=== PATIENT | female | born 1955 | race Caucasian/White ===

== ENCOUNTER → 2021-02-01 08:29 | Outpatient (REF) | payer OTHER, SELFPAY | LOC: ANHLAB 08:29 | PROVIDERS: PCP Internal Medicine; Visit Provider Nurse Practitioner | DX: C44.91 Basal cell carcinoma of skin, unspecified (principal) | CPT/HCPCS: 88305 ==

== ENCOUNTER → 2021-02-14 14:29 | Outpatient (CLI) | payer OTHER, SELFPAY ==
--- NOTE | ~2021-02-14 | MR_ITS ---
EXAMINATION: MR lumbar spine wo con DATE: 02/14/2021 15:14 INDICATION: Low back pain with radiculopathy. TECHNIQUE: Magnetic resonance imaging (MRI) of the lumbar spine was performed without intravenous con trast. Sequences included sagittal T2-weighted FSE, sagittal T2-weighted FS FSE, sagittal T1-weighted FSE, and axial T2-weighted FSE. COMPARISON: None FINDINGS: There is 9 degrees levocurvature of lumbar spine. There is 3 mm anterolisthesis of L4 on L5 . There is mild chronic anterior wedging of T12 vertebral body. Intervertebral disc heights are laron l. The distal spinal cord signal intensity is normal. The conus medullaris is at T12. The following d isc levels are specifically discussed: L1-L2: The disc is mildly bulging. There is severe bilateral facet joint osteoarthritis. There is mil d bilateral neural foraminal stenosis. There is mild central canal stenosis. L2-L3: The disc is bulging. There is severe bilateral facet joint osteoarthritis. There is mild bilat eral neural foraminal stenosis. There is mild central canal stenosis. L3-L4: The disc is bulging. There is severe bilateral facet joint osteoarthritis. There is mild bilat eral neural foraminal stenosis. There is mild central canal stenosis. L4-L5: The disc does not extend beyond the endplate margin. There is severe bilateral facet joint ost eoarthritis. There is mild right neural foraminal stenosis. There is no central canal stenosis. L5-S1: There is a central protrusion. There is severe bilateral facet joint osteoarthritis. There is mild bilateral neural foraminal stenosis. There is mild central canal stenosis. IMPRESSION: 1. Mild lumbar spondylosis. Reviewed, dictated and finalized at location A. IMPRESSION: 1. Mild lumbar spondylosis.
== END ==
PROVIDERS: PCP Nurse Practitioner Family; Visit Provider Nurse Practitioner Family
DX: M54.16 Radiculopathy, lumbar region (principal); M77.8 Other enthesopathies, not elsewhere classified; M47.816 Spondylosis without myelopathy or radiculopathy, lumbar region
CPT/HCPCS: 72148

== ENCOUNTER → 2021-04-25 07:26 | Outpatient (REF) | payer OTHER, SELFPAY | LOC: ANHLAB 07:26 | PROVIDERS: PCP Nurse Practitioner Family; Visit Provider Nurse Practitioner | DX: C44.311 Basal cell carcinoma of skin of nose (principal) | CPT/HCPCS: 88305; 88331 ==

== ENCOUNTER 2021-05-03 08:30 | Outpatient (RCR) | payer OTHER, SELFPAY ==
--- NOTE | 2021-04-05 12:20 | PTOPEVAL ---
Thank you for referring Pamella Reeves to [facility].? The patient is scheduled to be seen for therapy? 2x/week for 5 weeks. Please review, sign, date and return this plan of care ZULEMA. I agree with and certify that the following plan of care is medically necessary. Referring Physician Date Attending Provider: Kirill Tarango MD Diagnosis lumbar radiculopathy with right radiating symptoms. Onset 07/29 Additional Evaluation Detail foot surgery 07/28 for tarsal tunnel release and plantar fascia release she was in a boot, but did not have therapy. MRI: There is 9 degrees levocurvature of lumbar spine. There is 3 mm anterolisthesis of L4 on L5. There is mild chronic anterior wedging of T12 vertebral body. Subjective Information Reports radiating pain of Query Text:As Reported By Patient/ right post/ant leg rejohnn. She Family does gardening and crafts, but no regular exercise program. She has difficulty with sleeping with increased pain with turning. Reports increased pain initially in the morning. She is limited with distance walking due to right LE pain. 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 She can walk or stand for 10 minutes. Previous Treatments Previous Treatments For This Problem chiropractor x 2 months 3x/wk Pain Assessment Right Leg(s) Reported Pain Level 6 Pain Description Radiating,Sharp Pain Frequency Chronic,Continuous Lowest Pain Intensity 6 Greatest Pain Intensity 9 Pain Aggravating Factors Exercise/Activity,Walking, Weight Bearing/Standing Cervical and Lumbar ROM Lumbar ROM Lumbar Flexion Active FloorHands to: Lateral Flexion distal thigh:Active Hands to: Lumbar Comments 100% flex/ext with pain with flex discomfort with lateral flex Lower Extremity Muscle Strength Testing Hip Strength Left Hip Flexion Strength 4+ Good + Hip Extension Strength 4 Good Hip Abduction Strength 3 Fair Right Hip Flexion Strength 4- Good - Hip Extension Str
--- NOTE | 2021-05-03 15:10 | PCPTNOTE ---
Patient called & cancelled scheduled appointment next 2 therapy visit due to going to receive injections per MD request.
--- NOTE | 2021-05-23 10:17 | PCPTNOTE ---
Admitting Provider: Attending Provider: Kirill Tarango MD Patient:Pamella Reeves Date of :1955 Discharge Therapy Summary Patient has not returned for any further treatments since 05/03/2021, therefore she will be discharged at this time. she called and requested her therapy visits be discontinued due to following up with her doctor for injections. Patient?s initial visit was on 04/05/2021 10:00 and she had a total of 8 visits. The goals have been not met at this time. Thank you for referring this patient to [facility]. Please review, sign, date and return this discharge summary ZULEMA. I have been updated about the patient's current status and I agree with discharge from the above service at this time. Referring Physician Date
== END 2021-05-23 16:23 | disposition home or self-care (01) ==
LOC: ANHPT 08:30
PROVIDERS: PCP Nurse Practitioner Family; Visit Provider Orthopaedic Surgery
DX: M54.16 Radiculopathy, lumbar region (principal)
CPT/HCPCS: 97014; 97110; 97140; 97162; G0283

== ENCOUNTER → 2021-10-25 11:29 | Outpatient (CLI) | payer OTHER, SELFPAY ==
--- NOTE | ~2021-10-25 | MM_ITS ---
EXAMINATION: MM screening jamir BI w conor HISTORY: Screening mammogram TECHNIQUE: Craniocaudal and mediolateral oblique 3-D tomosynthesis images were obtained and synthetic 2-D images were generated. CAD analysis was submitted and interpreted. COMPARISON: 07/19/2019, 03/21/2018, 12/13/2015 bilateral screening mammogram examinations BREAST PARENCHYMAL COMPOSITION: There are scattered areas of fibroglandular density. FINDINGS: There is no evidence of suspicious mass, calcification, or architectural distortion to sugg est malignancy in either breast. There has been no suspicious interval change. IMPRESSION: 1. No mammographic evidence of malignancy. 2. Recommend routine screening mammography in one year. BI-RADS Category 1: Negative Reviewed, dictated and finalized at location A.
--- NOTE | ~2021-10-25 | DEXA_ITS ---
Bone Density Report Name: MIGUEL ÁNGEL TIPTON Age: 66 Sex: Female Ethnicity: White Date of : 1955 Indication: postmenopausal; screening for osteoporosis; height loss; hysterectomy; Referring Provider: BRANDONNATE Maradiaga Study: Bone densitometry was performed. Exam Date: October 25, 2021 Accession number: [id number] Bone Density: Region BMD T-score Z-score Classification AP Spine (L1-L4) 1.144 0.9 2.9 Normal Femoral Neck (Left) 0.877 0.3 2.0 Normal Total Hip (Left) 1.048 0.9 2.3 Normal Femoral Neck (Right) 0.889 0.4 2.1 Normal Total Hip (Right) 1.037 0.8 2.2 Normal Total Hip Mean 1.043 0.9 2.3 Normal World Health Organization criteria for BMD impression classify patients as: Normal (T-score at or above -1.0), Osteopenia (T-score between -1.0 and -2.5), or Osteoporosis (T-score at or below -2.5). 10-year Fracture Risk: FRAX not reported because: All T-scores for Spine Total, Hip Total, Femoral Neck at or above -1.0 Previous Exams: Region Exam Age BMD T-score BMD Change BMD Change Date g/cm2 vs Baseline vs Previous AP Spine(L1-L4) 10/25/2021 66 1.144 0.9 -0.031* -0.031* 06/06/2006 51 1.175 1.2 Total Hip(Left) 10/25/2021 66 1.048 0.9 0.022 0.022 06/06/2006 51 1.025 0.7 Total Hip(Right) 10/25/2021 66 1.037 0.8 0.027 0.027 06/06/2006 51 1.010 0.6 *Denotes significance at 95% confidence level, LSC for AP Spine = 0.022 g/cm2, LSC for Total Hip = 0.027 g/cm2 Clinical Information Provided by Patient: Has used the following medications: Vitamin D Has the following medical conditions: Hysterectomy Patient maximum height was 63 Menopause Age: 44 No regular weight bearing exercise Drinks caffeinated beverages Onset of menses at age 11 Number of children 2 Impression: The patient has normal bone mass. The BMD for the AP Spine(L1-L4) decreased, changing by -0.031 since the last DXA exam. Discussion: BONE DENSITY IS ABOVE THE MINIMUM DESIRABLE LEVEL AT ALL SKELETAL SITES TESTED. This patient?s bone mineral density is above the minimum desirable level (T-score -1.0 or better) at all sites measured. The patient should follow a healthful lifestyle (good nutrition with adequate calcium and vitamin D, and appropriate weight-bearing exercise). Follow-Up: Consider repeating this study in 3 to 4 years to reassess this patient's status, or sooner if there is some new clinical i
== END ==
PROVIDERS: PCP Nurse Practitioner Family; Visit Provider Nurse Practitioner Family
DX: Z12.31 Encounter for screening mammogram for malignant neoplasm of breast (principal); Z78.0 Asymptomatic menopausal state
CPT/HCPCS: 77063; 77067; 77080

== ENCOUNTER → 2022-06-14 16:01 | Outpatient (CLI) | payer OTHER, SELFPAY ==
--- NOTE | ~2022-06-14 | MR_ITS ---
EXAMINATION: MR lumbar spine wo con DATE: 06/14/2022 16:54 INDICATION: Stenosis of lateral recess of lumbar spine. Right lower limb pain. TECHNIQUE: Magnetic resonance imaging (MRI) of the lumbar spine was performed without intravenous con trast. Sequences included sagittal T2-weighted FSE, sagittal T2-weighted FS FSE, sagittal T1-weighted FSE, and axial T2-weighted FSE. COMPARISON: Lumbar spine MRI 02/14/2021 FINDINGS: There is 7 degrees levocurvature of lumbar spine. There is 3 mm anterolisthesis of L4 on L5 . There is mild chronic anterior wedging of T11 and T12 vertebral bodies. There are multiple Schmorl' s nodes in lower thoracic spine. Intervertebral disc heights are normal. The distal spinal cord signa l intensity is normal. The conus medullaris is at T12-L1. The following disc levels are specifically discussed: L1-L2: The disc is bulging. There is severe bilateral facet joint osteoarthritis. There is mild bilat eral neural foraminal stenosis. There is mild central canal stenosis. L2-L3: The disc is bulging. There is severe bilateral facet joint osteoarthritis. There is mild bilat eral neural foraminal stenosis. There is mild central canal stenosis. L3-L4: The disc is bulging. There is severe bilateral facet joint osteoarthritis. There is mild bilat eral neural foraminal stenosis. There is mild central canal stenosis. L4-L5: The disc does not extend beyond the endplate margin. There is severe bilateral facet joint ost eoarthritis. There is mild bilateral neural foraminal stenosis. There is no central canal stenosis. L5-S1: The disc does not extend beyond the endplate margin. There is moderate right and severe left f acet joint osteoarthritis. There is mild bilateral neural foraminal stenosis. There is no central can al stenosis. IMPRESSION: 1. Mild lumbar spondylosis, stable from 02/14/21. Reviewed, dictated and finalized at location E. 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
--- NOTE | ~2022-06-14 | XR_ITS ---
XR lumbar spine min 4V DATE: 06/14/2022 17:24 INDICATION: Lateral recess stenosis TECHNIQUE: Standing AP, lateral views. Standing flexion and extension lateral views. COMPARISON: None FINDINGS: There is 3 mm anterolisthesis at L4-5 in neutral and extension, increased to 6 mm in flexio n. There is degenerative change at the apophyseal joints at L4-5 and L5-S1 in particular. There is mild levoscoliosis of the thoracolumbar spine. No lumbar spine fracture or bone destruction is evident. The lumbar pedicles are intact. There is mild degenerative change. The sacroiliac joints are intact. Osteopenia. IMPRESSION: Osteopenia Mild levoscoliosis Degenerative change at the apophyseal joints with associated grade 1 anterolisthesis at L4-5, increas ed from 3 mm in neutral and extension to 6 mm in flexion Reviewed, dictated and finalized at location B. MAIN AND LINE FITTER IMPRESSION: Osteopenia Mild levoscoliosis Degenerative change at the apophyseal joints with associated grade 1 anterolist hesis at L4-5, increased from 3 mm in neutral and extension to 6 mm in flexion
== END ==
PROVIDERS: PCP Nurse Practitioner Family
DX: M48.061 Spinal stenosis, lumbar region without neurogenic claudication (principal); M47.816 Spondylosis without myelopathy or radiculopathy, lumbar region; M85.88 Other specified disorders of bone density and structure, other site; M41.9 Scoliosis, unspecified
CPT/HCPCS: 72110; 72148

== ENCOUNTER → 2022-07-28 14:43 | Outpatient (CLI) | payer OTHER, SELFPAY ==
--- NOTE | ~2022-07-28 | CT_ITS ---
EXAMINATION: CT lumbar spine wo con DATE: 07/28/2022 14:59 INDICATION: Spondylolisthesis, site unspecified. Low back pain. TECHNIQUE: Computed tomography (CT) of the lumbar spine was performed without intravenous contrast. A utomated exposure control and iterative reconstruction technique were employed. The dose-length produ ct was 923.13 mGy-cm. COMPARISON: Lumbar spine MRI 06/14/2022 FINDINGS: There are gallstones in the gallbladder. There is 8 degrees levocurvature of thoracolumbar spine. There is 3 mm anterolisthesis of L4 on L5. There is mild chronic anterior wedging of T12 verte bral body. There are Schmorl's nodes at T11-T12 and T12-L1. There is mildly decreased disc height at L1-L2 through L4-L5. The following disc levels are specifically discussed: L1-L2: The disc is bulging. There is severe bilateral facet joint osteoarthritis. There is mild bilat eral neural foraminal stenosis. There is mild central canal stenosis. L2-L3: The disc is bulging. There is severe bilateral facet joint osteoarthritis. There is mild bilat eral neural foraminal stenosis. There is mild central canal stenosis. L3-L4: The disc is bulging. There is severe bilateral facet joint osteoarthritis. There is mild bilat eral neural foraminal stenosis. There is mild central canal stenosis. L4-L5: The disc is bulging. There is severe bilateral facet joint osteoarthritis. There is mild bilat eral neural foraminal stenosis. There is mild central canal stenosis. L5-S1: The disc is bulging. There is severe bilateral facet joint osteoarthritis. There is mild bilat eral neural foraminal stenosis. There is mild central canal stenosis. IMPRESSION: 1. Mild lumbar spondylosis. Reviewed, dictated and finalized at location A. 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 Mild lumbar spondylosis.
== END ==
PROVIDERS: PCP Nurse Practitioner Family
DX: M43.10 Spondylolisthesis, site unspecified (principal); M47.896 Other spondylosis, lumbar region; M51.26 Other intervertebral disc displacement, lumbar region
CPT/HCPCS: 72131

== ENCOUNTER 2023-06-28 17:20 | Outpatient (NON) | payer OTHER, SELFPAY | END 2023-06-28 17:21 | disposition home or self-care (01) | PROVIDERS: PCP Nurse Practitioner Family; Visit Provider Nurse Practitioner | DX: C44.311 Basal cell carcinoma of skin of nose (principal) | CPT/HCPCS: 88305 ==

== ENCOUNTER 2023-11-08 13:18 | Outpatient (CLI) | payer OTHER, SELFPAY ==
--- NOTE | ~2023-11-08 | MM_ITS ---
EXAMINATION: MM screening jamir BI w conor HISTORY: Screening mammogram TECHNIQUE: Craniocaudal and mediolateral oblique 3-D tomosynthesis images were obtained and synthetic 2-D images were generated. CAD analysis was submitted and interpreted. COMPARISON: October 25, 2021, July 19, 2019 bilateral screening mammogram examinations BREAST PARENCHYMAL COMPOSITION: The breasts are almost entirely fatty. FINDINGS: There is no evidence of suspicious mass, calcification, or architectural distortion to sugg est malignancy in either breast. There has been no suspicious interval change. IMPRESSION: 1. No mammographic evidence of malignancy. 2. Recommend routine screening mammography in one year. BI-RADS Category 1: Negative Reviewed, dictated and finalized at location A.
== END 2023-11-08 13:19 ==
LOC: MICIMG 13:19
PROVIDERS: PCP Nurse Practitioner Family; Visit Provider Nurse Practitioner Family
DX: Z12.31 Encounter for screening mammogram for malignant neoplasm of breast (principal)
CPT/HCPCS: 77063; 77067

== ENCOUNTER 2025-01-07 11:41 | Outpatient (NON) | payer OTHER, SELFPAY ==
--- OUTSIDE RECORDS SUMMARY | 2025-01-07 11:44 | XMS_ITS | Clinical Summary ---
Author Organization [facility] Address [address] [place] [address] Care Team Providers Care Retail Delivery Driver Name Role Phone Evelia Garza Primary Care Provider [phone] Allergies No known active allergies Medications cholecalciferol 125 MCG (5000 UT) Tab Take 1 tablet (5,000 Units total) by mouth nightly at bedtime. Active vitamin B-12 (CYANOCOBALAMIN) 1000 mcg tablet Take 1 tablet (1,000 mcg total) by mouth nightly at bedtime. Active zinc gluconate 50 MG Tab Take 1 tablet (50 mg total) by mouth nightly at bedtime. Active magnesium 250 MG tablet Take 1 tablet (250 mg total) by mouth daily. Active rosuvastatin (CRESTOR) 10 MG tabletIndications: Mixed hyperlipidemia Take 1 tablet (10 mg total) by mouth nightly at bedtime. 30 tablet 07/24/19 25 Active olmesartan (BENICAR) 20 MG tabletIndications: Hypertension associated with diabetes ([facility] HHS/HCC) Take 1 tablet (20 mg total) by mouth daily. 30 tablet 07/24/19 25 Active metFORMIN (GLUCOPHAGE) 500 MG tabletIndications: Type 2 diabetes mellitus without complication, without long-term current use of insulin ([facility] HHS/HCC) Take 1 tablet (500 mg total) by mouth daily with breakfast. 30 tablet 07/24/19 25 Active levothyroxine (SYNTHROID) 88 MCG tabletIndications: Acquired hypothyroidism Take 1 tablet (88 mcg total) by mouth every morning. 30 tablet 07/24/19 25 Active amoxicillin (AMOXIL) 500 MG capsuleIndications :Prophylactic antibiotic Take 2 gm 1 hour prior to dental procedure 20 capsule 2 07/24/19 25 Active Additional Information Patient not taking.Reason: pre-dental prophilactic, Reported on 11/27/2024 predniSONE (DELTASONE) 20 MG tabletIndications: Pain and swelling of left lower leg,Acute pain of left knee Take 3 tablets daily for three days, then take 2 tablets daily for three days, then take 1 tablet daily for three days 18 tablet 11/28/19 25 Active Active Problems Problem Noted Date Diagnosed Date Chronic bilateral low back pain with bilateral s ciatica 07/24/2024 Chronic bilateral low back pain without sciatica 03/18/2024 Prophylactic antibiotic 01/15/2023 Bulging of lumbar intervertebral disc 08/18/2021 Spinal stenosis of lumbar re gion without neurogenic claudication 08/18/2021 Vitamin D deficiency, unspecified 08/18/2021 Post-menopausal 08/01/2020 Pelvic pain 08/01/2020 Primary osteoarthritis of right hip 08/01/2020 B12 deficiency 12/31/2019 History of skin cancer in adulthood 12/30/2019 Pigmented skin lesions 12/30/2019 Plantar fasciitis of right foot 03/04/2019 Right sided sciatica 10/04/2018 Cough 08/16/2017 Hypertension associated with diabetes ([facility] H HS/HCC) 09/04/2016 Diabetes mellitus ([facility]) 09/04/2016 History of menopause 09/04/2016 Hyperlipidemia 09/04/2016 Hypothyroidism 09/04/2016 Resolved Problems Problem Noted Date Diagnosed Date Resolved Date Encounter for screening mamm ogram for malignant neoplasm of breast 01/15/2023 01/22/2023 Type 2 diabetes mellitus wit h diabetic neuropathy ([facility]) 07/25/2022 07/24/2024 Neuropathy 08/18/2021 01/18/2023 Right hip pain 08/01/2020 01/28/2021 Decreased range of motion (ROM) of shoulder 04/04/2018 07/25/2022 Arm pain 03/12/2018 01/28/2021 Class 2 severe obesity due t o excess calories with serious comorbidity and body mass index (BMI) of 38.0 to 38.9 in adult 03/12/2018 Asthma ([facility]) 08/13/2017 07/17/2022 GERD (gastroesophageal reflux disease) 09/04/2016 07/17/2022 Vitamin D deficiency 09/04/2016 023 Encounters Date Type Department Care Team Description 12/15/2024 Telephone [facility] [address] [phone] Evelia Garza FNP Referral 12/09/2024 Telephone [facility] Medicine [address] [address] Ajith Guevara MD Referral 11/27/2024 1:33 PM CDT - 11/27/2024 11:59 PM CDT Hospital Encounter [facility] [place] [address] Hiral Maxwell, Discharge Disposition: Home or Self Care (Routine Discharge) 11/27/2024 10:00 AM CDT Office Visit [facility] [address] [address] Hiral Maxwell, Knee Pain (Patient presents today with L knee pain. Patient states on 11/22 she woke up to pain in her knee down to mid-calf after working in her garden the day before. No known injury otherwise. Patient states the pain is interrupting her sleep. ) 11/27/2024 Results Follow-Up [facility] [address] [address] Hiral Maxwell, USV DINH DUPLEX LOW EXT LT, XR KNEE LT 3V 11/27/2024 Travel from Last 3 Months Immunizations Immunization Administration Dates Next Due Dtap (Generic) 07/09/2004 Fluzone High Dose (IIV, triv alent, 0.5mL) 02/18/2024 Fluzone High Dose - >Age 65 (Prefilled Syringe) 05/12/2022,05/12/2022,05/20/2020,2019,08/30/2018 Influenza Adult (Generic) 05/12/2022,,07/15/2019,2018 Pneumococcal (Pneumovax 23) 12/30/2019 Pneumococcal (Prevnar 13) 08/30/2018 Shingrix 04/25/2019,01/28/2019 Tdap (Boostrix) 03/04/2019 Tdap (Generic) 07/09/2004 Family History Medical History Relation Comments Cancer Father lung Heart Maternal Grandmother Alzheimers Mother Heart Mother Hypertension Mother Cancer Paternal Grandmother Relation Status Comments Father (Age 71) Maternal Grandmother Mother Paternal Grandmother Social History Tobacco Use Types Packs/Day Years Used Date Smoking Tobacco: Never Passive Smoke Exposure: Never Smokeless Tobacco: Never Tobacco Cessation:Counseling Given: No Comments:not a smoker Alcohol Use Standard Drinks/Week Comments No 0 (1 standard drink = 0.6 oz pur e alcohol) AUDIT-C Answer Date Recorded Q1: How often do you have a drink containing alcohol? Never 07/24/2024 Q2: How many drinks containi ng alcohol do you have on a typical day when you are drinking? Patient does not drink Q3: How often do you have si x or more drinks on one occasion? Never 07/24/2024 PHQ-2 Answer Date Recorded Patient Health Questionnaire-2 Score 0 11/27/2024 Comments No Sex and Gender Information Value Date Recorded Sex Assigned at Female 07/24/2024 10:59 AM COMMERCIAL MANAGER Legal Sex Female 6:35 PM CDT Gender Identity Female 07/24/2024 10:59 AM COMMERCIAL MANAGER Sexual Orientation Straight 07/24/2024 10 :59 AM COMMERCIAL MANAGER Last Filed Vital Signs Vital Sign Reading Time Taken Comments Blood Pressure 120/68 11/27/2024 9:56 AM CDT Pulse 81 11/27/2024 9:56 AM CDT Temperature 37.3 C (99.1 F) 11/27/2024 9:56 AM CDT Respiratory Rate 16 11/27/2024 9:56 AM CDT Oxygen Saturation 98% 11/27/2024 9:56 AM CDT Inhaled Oxygen Concentration - - Weight 85.8 kg (189 lb 1.6 oz) 11/27/2024 9:56 A M CDT Height 160 cm (5' 3) 11/27/2024 9:56 AM CDT Body Mass Index 33.5 11/27/2024 9:56 AM CDT Plan of Treatment Upcoming Encounters Date Type Department Care Team (Late st Contact Info) Description 01/26/2025 8:00 AM CDT Office Visit [facility] Family [facility] - [id number] [place] [address] Evelia Garza, [facility] [address] [place] [address] Health Maintenance Due Date Last Done Comments Kidney Health Evaluation 1955 Hepatitis C 1971 Lipid Panel 08/02/2024 08/02/2023, 10/2022, 12/27/2021, Additional history exists Hemoglobin A1C 01/21/2025 07/24/2024, 01/07, 07/19/2023, Additional history exists COVID-19 Vaccine ( season) 2025 Postponed from 03/09/2024 (Patient Refused) Annual Medicare Wellness Visit 07/25/2025 07/24/2024 Diabetes: Retinopathy Eye Exam 08/07/2025 08/07/2024, 11/29/2023, 02/05/2023, Additional history exists Mammogram Screening 11/07/2025 11/08/2023, 10/25/2021, 07/30/2019 RSV Immunization or 60+ Years (1 - 1-dose 75+ series) 01/26/2028 Colorectal Cancer Screening Colonoscopy (10 Years) 03/21/2028 03/21/2018, 03/29/2012, DTaP, Tdap and Td Vaccines (4 - Td or Tdap) 03/04/2029 03/04/2019, 07/09/2004, 07/09/2004 Zoster Vaccines Completed 04/25/2019, 01/28/2019 Pneumococcal Vaccine: 50+ Years Completed 12/30/2019, 08/30/2018 Dexa Scan (General) Completed 10/25/2021, 2 PHQ-2 (Physician Wallace) Completed 11/27/2024 Meningococcal B Vaccine Aged Out No l onger eligible based on patient's age to complete this topic Meningococcal Vaccine Aged Out No annamaria balta eligible based on patient's age to complete this topic RSV Immunizations Under 20 Months Aged Out No longer eligible based on patient's age to complete this topic Procedures Procedure Name Priority Date/Time Associated Diagnosis Comments USV DINH DUPLEX LOW EXT LT STAT 11/27/2024 2:11 PM CDT Pain and swelling of left lower leg XR KNEE LT 3V Routine 11/27/2024 10:59 AM CDT Acute pain of left knee DIABETIC RETINOPATHY EXAM (NEGATIVE)(SCAN ORDER) Routine 08/07/2024 HEMOGLOBIN, GLYCOSYLATED Routine 07/24/2024 Type 2 diabetes mellitus without complication, without long-term current use of insulin ([facility]) MAMMOGRAM GENERIC (SCAN ORDER) 11/08/2023 LIPID PANEL Routine 08/02/2023 7:39 AM COMMERCIAL MANAGER BONE DENSITY GENERIC (SCAN ORDER) 10/25/2021 COLONOSCOPY GENERIC (SCAN ORDER) Routine 03/21/2018 from Last 3 Months or Most Recently Relevant to Health Maintenance Results * USV DINH DUPLEX LOW EXT LT (11/27/2024 2:11 PM CDT) Anatomical Region Laterality Modality Vascular Ultraso und 11/27/2024 1:38 PM CDT Narrative 11/27/2024 11:09 PM CDT VENOUS DUPLEX IMAGING LEFT LOWER EXTREMITY VASCULAR LAB Pat.Name: MIGUEL ÁNGEL TIPTON Pat.ID: [id number] St.Date: 11/27/2024 Exam Time: 1:38:00 PM Study Type:NOHELIA VS Venous Duplex Leg Lt Age: 7 1955,69Y Sex: F Sonogrphr: Nemo Szymanski RVT Pat. Stat.:Outpatient History / Clinical:Left knee and posterior calf pain x 4-5 days. PMH - No history of DVT. Procedures: Grissom scale, Color Doppler imaging, Doppler Spectral Analysis Race: W ++++++++++++++++++++++++++++++++++++ SUMMARY: ++++++++++++++++++++++++++++++++++++ Left leg: There are NO apparent, deep or superficial vein, ACUTE character venous filling defects visualized in the femoral, popliteal, deep calf or proximal saphenous veins. Resting venous flow is normal phasic proximally. Incidental finding: There is a cystic structure within the popliteal fossa measuring 1.2 x 0.8 x 1.16 cm. Right leg LIMITED: Resting venous flow is normal phasic at the common femoral. CONCLUSION: No evidence of deep vein thrombosis of the left lower extremity. There is a small Johnson's cyst within the left popliteal fossa with measurements above. <Electronic Signature> 11/27/2024 11:09 PM Yoselin Chand M.D. Procedure Note Yoselin Chand MD - 11/27/2024 VENOUS DUPLEX IMAGING LEFT LOWER EXTREMITY VASCULAR LAB Pat.Name: MIGUEL ÁNGEL TIPTON Pat.ID: [id number] .Date: 11/27/2024 Exam Time: 1:38:00 PM Study Type:NOHELIA VS Venous Duplex Leg Lt Age: 7 1955,69Y Sex: F Sonogrphr: Nemo Szymanski RVT Pat. Stat.:Outpatient History / Clinical:Left knee and posterior calf pain x 4-5 days. PMH - No history of DVT. Procedures: Grissom scale, Color Doppler imaging, Doppler Spectral Analysis Race: W ++++++++++++++++++++++++++++++++++++ SUMMARY: ++++++++++++++++++++++++++++++++++++ Left leg: There are NO apparent, deep or superficial vein, ACUTE character venous filling defects visualized in the femoral, popliteal, deep calf or proximal saphenous veins. Resting venous flow is normal phasic proximally. Incidental finding: There is a cystic structure within the popliteal fossa measuring 1.2 x 0.8 x 1.16 cm. Right leg LIMITED: Resting venous flow is normal phasic at the common femoral. CONCLUSION: No evidence of deep vein thrombosis of the left lower extremity. There is a small Johnson's cyst within the left popliteal fossa with measurements above. <Electronic Signature> 11/27/2024 11:09 PM Yoselin Chand M.D. us Hiral Maxwell DO US VASC Final Re sult * XR KNEE LT 3V (11/27/2024 10:59 AM CDT) Anatomical Region Laterality Modality Knee Radiographic Jennie ging 11/27/2024 6:20 PM CDT Impressions 11/27/2024 6:21 PM CDT IMPRESSION: 1) Unicompartmental knee prosthesis in the medial compartment. 2. No malalignment or acute bony abnormalities. Ordered By: HIRAL MAXWELL Interpreted By: Galo Cao MD, 11/27/2024 6:20 PM Narrative 11/27/2024 6:21 PM CDT [facility] [place] [address] Examination: XR KNEE LT 3V Exam time: 11/27/2024 10:46 AM Clinical history: Status post knee replacement. Knee pain. Comparison: No previous studies. Technique: 3 projections Findings: There is a partial knee prosthesis in the medial compartment. No acute bony abnormalities or malalignment. Degenerative changes in the anterior joint and the lateral compartment. Surrounding soft tissues of unremarkable. Small calcification superior to the patella on the lateral view. Procedure Note Galo Cao MD - 11/27/2024 [facility] [place] [address] Examination: XR KNEE LT 3V Exam time: 11/27/2024 10:46 AM Clinical history: Status post knee replacement. Knee pain. Comparison: No previous studies. Technique: 3 projections Findings: There is a partial knee prosthesis in the medial compartment. Noacute bony abnormalities or malalignment. Degenerative changes in theanterior joint and the lateral compartment. Surrounding soft tissues ofunremarkable. Small calcification superior to the patella on the lateralview. IMPRESSION: 1) Unicompartmental knee prosthesis in the medial compartment. 2. No malalignment or acute bony abnormalities. Ordered By: HIRAL MAXWELL Interpreted By: Galo Cao MD, 11/27/2024 6:20 PM Hiral Maxwell DO GENERAL IMAGING Final Re sult * DIABETIC RETINOPATHY EXAM (NEGATIVE) (08/07/2024) [facility] Scanned SCANNING Final Resu lt Performing Organization Address City/[facility]/ZIP Co de Phone Number [facility] ONBASE * A1C (BACK OFFICE) (07/24/2024) HGB A1C 7.4 % [facility] 07/24/2024 Evelia Garza [facility] Final Result Performing Organization Address [facility]/ZIP Co de Phone Number [facility] [address] [place] [address], [place] * MAMMOGRAM GENERIC (SCAN ORDER) (11/08/2023) Anatomical Region Laterality Modality Other 11/08/2023 [facility] Scanned SCANNING Final Resu lt * LIPID PANEL (08/02/2023 7:39 AM COMMERCIAL MANAGER) CHOLESTEROL 143 <200 mg/dL [facility] [place] HDL 56 > OR = 50 mg/dL [facility] TRIGLYCERIDES 110 <150 mg/dL [facility] [place] [place] LDL (CALCULATED) 67 mg/dL (calc) [facility] [place] Comment: Reference range: <100 Desirable range <100 mg/dL for primary prevention; <70 mg/dL for patients with CHD or diabetic patients with > or = 2 CHD risk factors. LDL-C is now calculated using the Garima calculation, which is a validated novel method providing better accuracy than the Friedewald equation in the estimation of LDL-C. Hussein CHINCHILLA et al. KRAIG. 2013;310(19): 9754-2615 (http://education.Charitybuzz/faq/MIG160) CHOL/HDL RATIO 2.6 <5.0 (calc) [facility] [place] NON HDL CHOLESTEROL 87 <130 mg/dL (calc) [facility] [place] Comment: For patients with diabetes plus 1 major ASCVD risk factor, treating to a non-HDL-C goal of <100 mg/dL (LDL-C of <70 mg/dL) is considered a therapeutic option. 08/02/2023 7:39 AM COMMERCIAL MANAGER 08/02/2023 7:45 AM COMMERCIAL MANAGER Narrative [facility] - 08/03/2023 2:27 AM COMMERCIAL MANAGER FASTING:YES COLLECTION KIT GIVEN TO PATIENT. PATIENT ADVISED TO RETURN. FASTING: YES Resulting Agency Comment Performing Organization Information: Site ID: SL Name: [facility] Address: [facility] [place] [address] Director: Migue Suárez us Evelia [facility] Final Result Performing Organization Address City/State/[facility] Co de Phone Number [facility] [employer] [address], * BONE DENSITY GENERIC (10/25/2021) Anatomical Region Laterality Modality Other 10/25/2021 Narrative 10/25/2021 Ordered by an unspecified provider. us Documents Scanned SCANNING Final Result * COLONOSCOPY (03/21/2018) us Documents Scanned SCANNING Final Result from Last 3 Months or Most Recently Relevant to Health Maintenance Insurance [employer] Care Teams Retail Delivery Driver Relationship Specialty Start Date End Date Evelia Garza FNP [address] [place] [address] PCP - General 09/04/16
[2025-01-07 11:47] LABS: Color Synovial Fluid Yellow (Colorless); Source Synovial Fluid Lt Knee Syn Fluid
[2025-01-07 11:51] LABS: Nucleated Cell Synovial Fluid 607 /uL (0-200); RBC Synovial Fluid < 2000 /uL (0-0)
[2025-01-07 12:08] LABS: Lymphocytes Synovial Fluid 60 %; Macrophages Synovial Fluid 8 %; Monocytes Synovial Fluid 23 %; Neutrophils Synovial Fluid 1 % (0-25)
[2025-01-07 12:09] LABS: Other Cells Synovial Fluid 8 %
== END 2025-01-07 11:42 | disposition home or self-care (01) ==
PROVIDERS: PCP Nurse Practitioner Family; Visit Provider Orthopaedic Surgery
DX: M25.562 Pain in left knee (principal); Z96.652 Presence of left artificial knee joint
CPT/HCPCS: 87070; 87075; 87205; 89051; 89060